=== PATIENT | female | born 1970 | race Caucasian/White ===

== ENCOUNTER 2017-01-02 12:53 | Emergency (ER) | payer BC | END 2017-01-02 15:55 | disposition home or self-care (01) | LOC: ER 12:53 | DX: G51.0 Bell's palsy (principal); I69.392 Facial weakness following cerebral infarction; Z79.899 Other long term (current) drug therapy; Z88.0 Allergy status to penicillin; Z88.1 Allergy status to other antibiotic agents; Z88.8 Allergy status to other drugs, medicaments and biological substances | CPT/HCPCS: 70450; 81025; 99070; 99284-25 ==